=== PATIENT | male | born 1990 | race Caucasian/White ===

== ENCOUNTER 2017-07-22 09:44 | Inpatient (IN) ==
[2017-07-22] MEDS ORDERED: MOM Conc 10 ML UD.LIQ PO PRN (10:02)
[2017-07-22] MEDS ORDERED: Acetaminophen 325 MG TABLET PO PRN (10:02)
[2017-07-22] MEDS ORDERED: hydrOXYzine pamoate 25 MG CAPSULE PO PRN (10:02)
[2017-07-22] MEDS ORDERED: *HR* LORazepam 2 MG/ML VIAL IM PRN (10:02)
[2017-07-22] MEDS ORDERED: Mag Hydrox/Al Hydrox/Simeth 30 ML UDC PO PRN (10:02)
[2017-07-22] MEDS ORDERED: traZODone 50 MG TABLET PO PRN (10:02)
[2017-07-22] MEDS ORDERED: *HR* LORazepam 1 MG TABLET PO PRN (10:02)
[2017-07-22] MEDS ORDERED: Haloperidol Lactate 5 MG/ML VIAL IM PRN (10:02)
[2017-07-22] MEDS ORDERED: Baclofen 10 MG TABLET PO PRN (10:07)
[2017-07-22] MEDS ORDERED: Ondansetron ODT 4 MG TAB.RAPDIS SL PRN (10:09)
[2017-07-22] MEDS ORDERED: FLUoxetine 20 MG CAPSULE PO SCH (10:15)
[2017-07-22] MEDS: Nicotine 21 MG PATCH.TD24 TD SCH (11:19)
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
[2017-07-22] MEDS ORDERED: Methylphenidate HCl 10 MG TABLET PO STA (16:36)
[2017-07-22] MEDS: OLANZapine 10 MG TAB.RAPDIS PO SCH (20:45)
[2017-07-22] MEDS: Triamcinolone Acet 0.1% CRM 15 GM TUBE TP SCH (20:47)
[2017-07-23] MEDS: Methylphenidate HCl 10 MG TABLET PO SCH ×2 (08:33→11:50)
[2017-07-23] MEDS: Triamcinolone Acet 0.1% CRM 15 GM TUBE TP SCH ×3 (08:33→21:24)
[2017-07-23] MEDS: Nicotine 21 MG PATCH.TD24 TD SCH (08:33)
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
[2017-07-23] MEDS: OLANZapine 10 MG TAB.RAPDIS PO SCH (20:56)
[2017-07-24] MEDS: Methylphenidate HCl 10 MG TABLET PO SCH ×2 (08:27→12:04)
[2017-07-24] MEDS: Nicotine 21 MG PATCH.TD24 TD SCH (08:28)
[2017-07-24] MEDS: Triamcinolone Acet 0.1% CRM 15 GM TUBE TP SCH ×3 (12:16→21:43)
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
[2017-07-24] MEDS: OLANZapine 10 MG TAB.RAPDIS PO SCH (21:14)
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
[2017-07-25] MEDS: Methylphenidate HCl 10 MG TABLET PO SCH (08:28)
[2017-07-25] MEDS: Nicotine 21 MG PATCH.TD24 TD SCH (08:28)
[2017-07-25] MEDS: Triamcinolone Acet 0.1% CRM 15 GM TUBE TP SCH ×2 (08:29→14:38)
[2017-07-25 09:00] VITALS: BP 146/85
== END 2017-07-25 15:30 | disposition home or self-care (01) | DRG 758 ==
LOC: 1ANU 09:44 → SUATTDRO 09:44
PROVIDERS: ADMIT General Practice; ATTEND Psychiatry & Neurology Forensic Psychiatry